=== PATIENT | male | born 1995 | race Caucasian/White ===

== ENCOUNTER 2021-09-25 23:47 | Emergency (ER) | payer OTHER ==
[2021-09-25 23:53] VITALS: BP 144/85; PULSE 76; TEMP 97.6; BMI 27.0
[2021-09-25] MEDS ORDERED: IBUPROFEN 600 MG TABLET (FP) PO ONE ×2 (23:57)
[2021-09-25] MEDS ORDERED: IBUPROFEN 400 MG TABLET (FP) PO ONE (23:58)
== END 2021-09-26 00:06 | disposition home or self-care (01) ==
LOC: FER 23:47
DX: M54.50 Low back pain, unspecified (principal); V49.9XXA Car occupant (driver) (passenger) injured in unspecified traffic accident, initial encounter
CPT/HCPCS: 99283-25

== ENCOUNTER 2023-01-09 11:50 | Emergency (ER) | payer OTHER ==
[2023-01-09 12:03] VITALS: BP 140/75; PULSE 81; RESP 18; TEMP 99.3; BMI 28.3
== END 2023-01-09 13:29 | disposition home or self-care (01) ==
LOC: FER 11:50
DX: M25.561 Pain in right knee (principal); S80.211A Abrasion, right knee, initial encounter; X58.XXXA Exposure to other specified factors, initial encounter; Y93.72 Activity, wrestling
CPT/HCPCS: 99282-25

== ENCOUNTER 2024-08-14 09:41 | Emergency (ER) | payer OTHER, BC ==
[2024-08-14 09:50] VITALS: BP 155/82; PULSE 52; RESP 15; TEMP 98.5; BMI 27.1
[2024-08-14] MEDS ORDERED: IBUPROFEN 400 MG TABLET (FP) PO ONE (10:10)
[2024-08-14] MEDS: IBUPROFEN 400 MG TABLET (FP) PO ONE (10:12)
[2024-08-14] MEDS ORDERED: LIDOCAINE 5% TOPICAL PATCH ONE (10:56)
[2024-08-14] MEDS: LIDOCAINE 5% TOPICAL PATCH TP ONE (11:20)
[2024-08-14] MEDS ORDERED: LIDOCAINE PATCH REMOVAL MC SCH (22:00)
== END 2024-08-14 12:27 | disposition home or self-care (01) ==
LOC: FER 09:41
DX: M54.2 Cervicalgia (principal); V49.40XA Driver injured in collision with unspecified motor vehicles in traffic accident, initial encounter; Y35.811A Legal intervention involving manhandling, law enforcement official injured, initial encounter; Y92.410 Unspecified street and highway as the place of occurrence of the external cause
CPT/HCPCS: 70450-TC; 72125-TC; 99284-25

== ENCOUNTER 2024-08-15 11:58 | Emergency (ER) | payer OTHER, BC ==
[2024-08-15 12:17] VITALS: BP 136/93; PULSE 100; RESP 16; TEMP 99; BMI 27.1
== END 2024-08-15 12:46 | disposition home or self-care (01) ==
LOC: FER 11:58
DX: S50.811A Abrasion of right forearm, initial encounter (principal); S50.812A Abrasion of left forearm, initial encounter; W00.0XXA Fall on same level due to ice and snow, initial encounter
CPT/HCPCS: 99283-25

== ENCOUNTER 2025-02-27 09:29 | Emergency (ER) | payer OTHER, BC ==
[2025-02-27 09:36] VITALS: BP 117/84; PULSE 79; RESP 18; TEMP 98.3; BMI 27.6
[2025-02-27] MEDS ORDERED: DIPHTH,PERTUSS(ACELL),TET 0.5 ML DISP.SYRIN IM ONE (09:59)
[2025-02-27] MEDS ORDERED: ACETAMINOPHEN 500 MG TABLET (FP) ONE (10:01)
[2025-02-27] MEDS: DIPHTH,PERTUSS(ACELL),TET 0.5 ML DISP.SYRIN IM ONE (10:05)
[2025-02-27] MEDS ORDERED: BACITRACIN ZINC 15 GM TUBE TOPICAL OINTMENT ONE (10:08)
[2025-02-27] MEDS: BACITRACIN ZINC 15 GM TUBE TOPICAL OINTMENT TP ONE (10:18)
[2025-02-27] MEDS: ACETAMINOPHEN 500 MG TABLET (FP) PO ONE (10:18)
== END 2025-02-27 11:05 | disposition home or self-care (01) ==
LOC: JER 09:29 → JERFT 09:29
PROC: 3E0234Z Introduction of Serum, Toxoid and Vaccine into Muscle, Percutaneous Approach (ICD-10-PCS; principal; 2025-02-27)
DX: S00.81XA Abrasion of other part of head, initial encounter (principal); S50.811A Abrasion of right forearm, initial encounter; S50.812A Abrasion of left forearm, initial encounter; S40.811A Abrasion of right upper arm, initial encounter; S50.311A Abrasion of right elbow, initial encounter; S50.312A Abrasion of left elbow, initial encounter; Z23 Encounter for immunization; Y35.811A Legal intervention involving manhandling, law enforcement official injured, initial encounter
CPT/HCPCS: 90715; 99284-25